=== PATIENT | female | born 1980 | race Caucasian/White ===

== ENCOUNTER → 2016-12-05 | Outpatient (CLI) | payer BC ==
--- NOTE | 2016-12-05 15:38 | CT ---
EXAMINATION TYPE: CT iac wo con DATE OF EXAM: 12/05/2016 COMPARISON: NONE HISTORY: Head injury 10/24/16. Bilateral hearing loss, worse on left side. CT DLP: 150.00mGycm Automated exposure control for dose reduction was used. FINDINGS: The external auditory canals are patent bilaterally. Mastoid air cells show no evidence of abnormal opacification bilaterally. The middle ear ossicles are symmetric and unremarkable. There is no evidence of suspicious surrounding soft tissue density to suggest cholesteatoma. The scutum is preserved bilaterally. The cochlea and the semicircular canals are symmetric and unremarkable. Ves tibular aqueduct and internal carotid canal appear unremarkable. Temporomandibular joints are mainta ined bilaterally. IMPRESSION: No significant abnormality seen to account for patient's symptoms.
== END | disposition home or self-care (01) ==
LOC: RADCTMAIN 14:53
PROVIDERS: ATTEND Nurse Practitioner Family
DX: H93.19 Tinnitus, unspecified ear (principal); H90.12 Conductive hearing loss, unilateral, left ear, with unrestricted hearing on the contralateral side; S09.90XS Unspecified injury of head, sequela
CPT/HCPCS: 70480

== ENCOUNTER → 2018-09-10 | Outpatient (CLI) | payer BC, OTHER ==
--- NOTE | 2018-09-11 10:32 | XR ---
Right shoulder HISTORY: Pain for 2 years 3 views of the right shoulder Bone mineralization, joint spaces and alignment are maintained. Right lung apex as visualized is norm al. IMPRESSION: Normal right shoulder.
== END | disposition home or self-care (01) ==
LOC: RADXRMAIN 17:07
PROVIDERS: ATTEND Family Medicine
DX: M75.41 Impingement syndrome of right shoulder (principal)

== ENCOUNTER → 2018-11-06 | Outpatient (CLI) | payer BC, OTHER ==
--- NOTE | 2018-11-06 17:00 | XR ---
Left foot HISTORY: M 79.672, pain 3 views of the left foot Suspect there is been prior osteotomy change at the first metatarsal, lucency is present in the first metatarsal head, there is marginal spurring, joint space loss at the first metatarsophalangeal joint . IMPRESSION: Suspect postop change first metatarsal, possible secondary osteoarthritic changes. Follow -up as indicated, MRI may be of benefit.
== END | disposition home or self-care (01) ==
LOC: RADXRMAIN 16:30
PROVIDERS: ATTEND Family Medicine
DX: M79.672 Pain in left foot (principal); Z98.890 Other specified postprocedural states

== ENCOUNTER → 2018-12-10 | Outpatient (CLI) | payer OTHER ==
--- NOTE | 2018-12-10 17:07 | XR ---
EXAMINATION TYPE: XR shoulder complete RT DATE OF EXAM: 12/10/2018 COMPARISON: 09/10/2018 HISTORY: Pain for one month TECHNIQUE: 3 views FINDINGS: I see no fracture nor dislocation. Joint spaces are normal. There are no pathologic calcifi cations. IMPRESSION: Negative right shoulder exam.
== END | disposition home or self-care (01) ==
LOC: RADXRMAIN 16:38
PROVIDERS: ATTEND Emergency Medicine
DX: S46.811A Strain of other muscles, fascia and tendons at shoulder and upper arm level, right arm, initial encounter (principal)

== ENCOUNTER 2019-06-05 17:03 | Emergency (ER) | payer BC, OTHER ==
[2019-06-05 17:08] VITALS: RESP 16; TEMP 97.8
[2019-06-05] MEDS ORDERED: ONDANSETRON 4 MG/2 ML VIAL IVP STA (17:27)
[2019-06-05] MEDS ORDERED: SODIUM CHLORIDE 0.9% 500 ML 500 ML IV STA (17:27)
[2019-06-05] MEDS ORDERED: SODIUM CHLORIDE 0.9% 1,000 ML IV SCH (17:30)
[2019-06-05 18:05] LABS: Appearance,Urine Cloudy (Clear); Bacteria,Urine Rare /hpf; Bilirubin,Urine Negative (Negative); Blood,Urine Moderate (Negative); Color,Urine Yellow; Glucose,Urine (UA) Negative (Negative); Ketones,Urine 2+ (Negative); Leukocyte Esterase,Urine Trace (Negative); Mucus,Urine Occasional /hpf; Nitrite,Urine Negative (Negative); Protein,Urine Negative (Negative); RBC,Urine 55 /hpf (0-5); Specific Gravity,Urine 1.022 (1.001-1.035); Squamous Epithelial Cell,Urine 4 /hpf (0-4); Urobilinogen,Urine <2.0 mg/dL (<2.0); WBC,Urine 2 /hpf (0-5)
[2019-06-05 18:09] LABS: ALT 15 U/L (4-34); AST 24 U/L (14-36); African American GFR (CKD) >90 (>60 ml/min/1.73 sqM); Albumin 4.5 g/dL (3.5-5.0); Alkaline Phosphatase 56 U/L (38-126); Amylase 32 U/L (30-110); Anion Gap 4 mmol/L; Blood Urea Nitrogen 15 mg/dL (7-17); Calcium 9.2 mg/dL (8.4-10.2); Carbon Dioxide 26 mmol/L (22-30); Chloride 106 mmol/L (98-107); Glucose 92 mg/dL (74-99); Non-African American GFR(CKD) >90 (>60 ml/min/1.73 sqM); Sodium 136 mmol/L (137-145); Total Bilirubin 0.5 mg/dL (0.2-1.3)
--- NOTE | 2019-06-05 18:27 | US ---
EXAMINATION TYPE: US abdomen limited DATE OF EXAM: 06/05/2019 COMPARISON: NONE CLINICAL HISTORY: RUQ Pain. EXAM MEASUREMENTS: Liver Length: 13.5 cm Gallbladder Wall: 0.4 cm CBD: 0.3 cm Right Kidney: 9.1 x 3.5 x 4.1 cm Pancreas: Partially obscured by bowel gas, portions visualized wnl Liver: wnl Gallbladder: slightly thickened wall, patient states she hasn't eaten for 7 hours Evidence for sonographic Grewal's sign: no CBD: wnl Right Kidney: No hydronephrosis or masses seen IMPRESSION: Negative exam. No gallstones or dilated ducts. No renal mass or obstruction.
[2019-06-05 18:35] LABS: HCT 39.3 % (34.0-46.0); HGB 13.3 gm/dL (11.4-16.0); MCH 29.8 pg (25.0-35.0); MCV 87.6 fL (80.0-100.0); Mean Platelet Volume 9.1; Platelet Count 167 k/uL (150-450); RBC 4.48 m/uL (3.80-5.40); RDW 12.8 % (11.5-15.5); WBC 6.3 k/uL (3.8-10.6)
[2019-06-05 19:01] LABS: Eosinophils # (M) 0.06 k/uL (0-0.7); Lymphocytes # (M) 2.96 k/uL (1.0-4.8); Monocytes # (M) 0.38 k/uL (0-1.0); Neutrophils % (M) 46 %; Nucleated Red Blood Cells 0 /100 WBC (0-0); Total Cells Counted 100
--- NOTE | 2019-06-05 19:44 | ED ---
Abdominal Pain HPI - General Chief Complaint: Abdominal Pain Stated Complaint: Abd pain Time Seen by Provider: 06/05/19 17:13 Source: patient Mode of arrival: ambulatory Limitations: no limitations - History of Present Illness Initial Comments: 38-year-old feel presents for 1 day of right upper quadrant abdominal pain. Patient states while at work she developed right upper quadrant dull pain she states she had some nausea. Denies vomiting denies diarrhea denies loose stools denies pattern with food. Denies fevers. Patient states she is currently menstruating denies any significant lower abdominal pain. Patient denies any flank or back pain. Patient denies dysuria urgency frequency patient denies any history of kidney stones. Patient states is dull aching and at times sharp. Patient states that increases in the RUQ of the abdomen when she takes a deep breath denies hemoptysis leg swelling she denies any history of DVT or pulmonary embolism denies any history of active cancer. Patient has no other complaints she denies shortness of breath. Upon arrival patient is afebrile. VS within acceptable limits.NO sign of acute distress. - Related Data Home Medications Medication Instructions Recorded Confirmed Bcp 02/15/15 02/15/15 Allergies Allergy/AdvReac Type Severity Reaction Status Date / Time No Known Allergies Allergy Verified 06/05/19 17:07 Review of Systems ROS Statement: Those systems with pertinent positive or pertinent negative responses have been documented in the HPI. ROS Other: All systems not noted in ROS Statement are negative. Past Medical History Past Medical History: No Reported History History of Any Multi-Drug Resistant Organisms: None Reported Past Surgical History: No Surgical Hx Reported Additional Past Surgical History / Comment(s): (L) foot Past Psychological History: No Psychological Hx Reported Smoking Status: Never smoker Past Alcohol Use History: None Reported Past Drug Use History: None Reported General Exam - General Exam Comments Initial Comments: General: The patient is awake and alert, in no distress, and does not appear acutely ill. Eye: +3 mm pupils are equal, round and reactive to light, extra-ocular movements are intact. No nystagmus. There is normal conjunctiva bilaterally. No signs of icterus. Ears, nose, mouth and throat: There are moist mucous membranes and no oral lesions. Neck: The neck is supple, there is no tenderness or JVD. Cardiovascular: There is a regular rate and rhythm. No murmur, rub or gallop is appreciated. Respiratory: Lungs are clear to auscultation, respirations are non-labored, breath sounds are equal. No wheezes, stridor, rales, or rhonchi. Gastrointestinal: Soft, non-distended, mild tenderness to deep palpation of the RUQ, (-) murphys sign, remaining abdomen nontender and without masses or organomegaly noted. There is no rebound or guarding present. No CVA tenderness. Musculoskeletal: Normal ROM, no tenderness. Strength 5/5. Sensation intact. Radial pulses equal bilaterally 2+. Neurological: A&O x 3. CN II-XII intact grossly, There are no obvious motor or sensory deficits. Coordination appears grossly intact. Speech is normal. Skin: Skin is warm and dry and no rashes or lesions are noted. Psychiatric: Cooperative, appropriate mood & affect, normal judgment. Limitations: no limitations Course Vital Signs 06/05/19 06/05/19 17:04 19:47 Temperature 97.8 F Pulse Rate 72 70 Respiratory 16 16 Rate Blood Pressure 118/73 109/72 O2 Sat by Pulse 97 99 Oximetry Medical Decision Making - Medical Decision Making 38-year-old feel presenting for upper quadrant pain ultrasound revealed a mildly thickened gallbladder however patient states she has not ate a meal in over 7 hours. There is no evidence of pericolic cystic fluid there is no evidence of acute cholecystitis at this time. No gallstones. Patient has no transaminitis she has no increase in lipase. She does not appear in acute distress she is afebrile with no leukocytosis. Patient's chest x-ray that was obtained outpatient is clear. Patient dimer (-). No risk factors concerning for DVT/PE. Patient pain is reproducible on abdominal exam. At this time feel she is stable for discharge with close primary care follow-up and strict return parameters for increasing or persistent pain patient verbalized understanding and was d ischarged appearing well. Discussed the case with attending provider Dr. Eaton who is agreeable to this care plan and discharge home. - Lab Data Result diagrams: 06/05/19 17:46 06/05/19 17:46 Lab Results 06/05/19 06/05/19 06/05/19 Range/Units 17:46 17:46 17:46 WBC 6.3 (3.8-10.6) k/uL RBC 4.48 (3.80-5.40) m/uL Hgb 13.3 (11.4-16.0) gm/dL Hct 39.3 (34.0-46.0) % MCV 87.6 (80.0-100.0) fL MCH 29.8 (25.0-35.0) pg MCHC 34.0 (31.0-37.0) g/dL RDW 12.8 (11.5-15.5) % Plt Count 167 (150-450) k/uL Neutrophils % (Manual) 46 % Lymphocytes % (Manual) 47 % Monocytes % (Manual) 6 % Eosinophils % (Manual) 1 % Neutrophils # (Manual) 2.90 (1.3-7.7) k/uL Lymphocytes # (Manual) 2.96 (1.0-4.8) k/uL Monocytes # (Manual) 0.38 (0-1.0) k/uL Eosinophils # (Manual) 0.06 (0-0.7) k/uL Nucleated RBCs 0 (0-0) /100 WBC Manual Slide Review Performed RBC Morphology Normal D-Dimer (<0.60) mg/L FEU Sodium 136 L (137-145) mmol/L Potassium 4.0 (3.5-5.1) mmol/L Chloride 106 (98-107) mmol/L Carbon Dioxide 26 (22-30) mmol/L Anion Gap 4 mmol/L BUN 15 (7-17) mg/dL Creatinine 0.78 (0.52-1.04) mg/dL Est GFR (CKD-EPI)AfAm >90 (>60 ml/min/1.73 sqM) Est GFR (CKD-EPI)NonAf >90 (>60 ml/min/1.73 sqM) Glucose 92 (74-99) mg/dL Calcium 9.2 (8.4-10.2) mg/dL Total Bilirubin 0.5 (0.2-1.3) mg/dL AST 24 (14-36) U/L ALT 15 (4-34) U/L Alkaline Phosphatase 56 (38-126) U/L Total Protein 7.0 (6.3-8.2) g/dL Albumin 4.5 (3.5-5.0) g/dL Amylase 32 (30-110) U/L Lipase 85 (23-300) U/L Urine Color Yellow Urine Appearance Cloudy H (Clear) Urine pH 6.0 (5.0-8.0) Ur Specific Loris 1.022 (1.001-1.035) Urine Protein Negative (Negative) Urine Glucose (UA) Negative (Negative) Urine Ketones 2+ H (Negative) Urine Blood Moderate H (Negative) Urine Nitrite Negative (Negative) Urine Bilirubin Negative (Negative) Urine Urobilinogen <2.0 (<2.0) mg/dL Ur Leukocyte Esterase Trace H (Negative) Urine RBC 55 H (0-5) /hpf Urine WBC 2 (0-5) /hpf Ur Squamous Epith Cells 4 (0-4) /hpf Urine Bacteria Rare H (None) /hpf Urine Mucus Occasional H (None) /hpf Urine HCG, Qual (Not Detectd) 06/05/19 06/05/19 Range/Units 17:46 17:46 WBC (3.8-10.6) k/uL RBC (3.80-5.40) m/uL Hgb (11.4-16.0) gm/dL Hct (34.0-46.0) % MCV (80.0-100.0) fL MCH (25.0-35.0) pg MCHC (31.0-37.0) g/dL RDW (11.5-15.5) % Plt Count (150-450) k/uL Neutrophils % (Manual) % Lymphocytes % (Manual) % Monocytes % (Manual) % Eosinophils % (Manual) % Neutrophils # (Manual) (1.3-7.7) k/uL Lymphocytes # (Manual) (1.0-4.8) k/uL Monocytes # (Manual) (0-1.0) k/uL Eosinophils # (Manual) (0-0.7) k/uL Nucleated RBCs (0-0) /100 WBC Manual Slide Review RBC Morphology D-Dimer <0.17 (<0.60) mg/L FEU Sodium (137-145) mmol/L Potassium (3.5-5.1) mmol/L Chloride (98-107) mmol/L Carbon Dioxide (22-30) mmol/L Anion Gap mmol/L BUN (7-17) mg/dL Creatinine (0.52-1.04) mg/dL Est GFR (CKD-EPI)AfAm (>60 ml/min/1.73 sqM) Est GFR (CKD-EPI)NonAf (>60 ml/min/1.73 sqM) Glucose (74-99) mg/dL Calcium (8.4-10.2) mg/dL Total Bilirubin (0.2-1.3) mg/dL AST (14-36) U/L ALT (4-34) U/L Alkaline Phosphatase (38-126) U/L Total Protein (6.3-8.2) g/dL Albumin (3.5-5.0) g/dL Amylase (30-110) U/L Lipase (23-300) U/L Urine Color Urine Appearance (Clear) Urine pH (5.0-8.0) Ur Specific Loris (1.001-1.035) Urine Protein (Negative) Urine Glucose (UA) (Negative) Urine Ketones (Negative) Urine Blood (Negative) Urine Nitrite (Negative) Urine Bilirubin (Negative) Urine Urobilinogen (<2.0) mg/dL Ur Leukocyte Esterase (Negative) Urine RBC (0-5) /hpf Urine WBC (0-5) /hpf Ur Squamous Epith Cells (0-4) /hpf Urine Bacteria (None) /hpf Urine Mucus (None) /hpf Urine HCG, Qual Not Detected (Not Detectd) Disposition Clinical Impression: RUQ abdominal pain Disposition: HOME SELF-CARE Condition: Good Instructions (If sedation given, give patient instructions): Abdominal Pain (ED) Additional Instructions: Please use medication as discussed. Please follow-up with family doctor in the next 2 days for hematuria . Please return to emergency room if the symptoms increase or worsen or for any other concerns. Is patient prescribed a controlled substance at d/c from ED?: No Referrals: Jennifer Padilla MD [Primary Care Provider] - 1-2 days Time of Disposition: 19:43
[2019-06-05 19:48] VITALS: BP 109/72; PULSE 70
== END 2019-06-05 19:56 | disposition home or self-care (01) ==
LOC: EC 17:03
DX: R10.11 Right upper quadrant pain (principal); R11.0 Nausea
CPT/HCPCS: 36415; 85379; 80053; 82150; 83690; 85025; 81001; 81025; 76705; 99284; 96374; 96361 ×2; J2405

== ENCOUNTER → 2019-06-05 | Outpatient (CLI) | payer BC, OTHER ==
--- NOTE | 2019-06-05 19:04 | XR ---
EXAMINATION TYPE: XR chest 2V DATE OF EXAM: 06/05/2019 COMPARISON: NONE HISTORY: Left side lung nodule. Short of breath. TECHNIQUE: 2 views FINDINGS: Heart and mediastinum are normal. Lungs are clear. Diaphragm is normal. Bony thorax appears normal. IMPRESSION: Normal chest.
== END | disposition home or self-care (01) ==
LOC: RAD 16:42
PROVIDERS: ATTEND Family Medicine
DX: R91.1 Solitary pulmonary nodule (principal)
CPT/HCPCS: 71046

== ENCOUNTER → 2023-03-29 | Outpatient (CLI) | payer OTHER ==
--- NOTE | 2023-03-29 16:17 | US ---
EXAMINATION TYPE: US kidneys/renal and bladder DATE OF EXAM: 03/29/2023 COMPARISON: NONE CLINICAL INDICATION: Female, 42 years old with history of R10.9 UNSPECIFIED ABDOMINAL PAIN; Right fla nk pain, abdominal swelling/bloating EXAM MEASUREMENTS: Right Kidney: 8.5 x 3.6 x 4.9 cm Left Kidney: 9.1 x 4.2 x 4.6 cm Multiple punctate echogenic areas on both sides, probably prominent vascular reflectors. No hydronephrosis is seen on either side. Bladder: No gross abnormality. Bilateral Jets seen: Yes IMPRESSION: Punctate echogenic areas in both sides, probably prominent vascular reflectors. Some underlying tiny nonobstructive renal calculi are difficult to exclude. No hydronephrosis.
== END | disposition home or self-care (01) ==
LOC: RADUSWWP 15:36
PROVIDERS: ATTEND Family Medicine
DX: R10.9 Unspecified abdominal pain (principal); R14.0 Abdominal distension (gaseous)
CPT/HCPCS: 76770

== ENCOUNTER → 2024-02-07 | Outpatient (CLI) | payer OTHER ==
--- NOTE | 2024-02-07 10:53 | US ---
EXAMINATION TYPE: US abdomen complete DATE OF EXAM: 02/07/2024 COMPARISON: 03/29/2023 06/05/2019 CLINICAL INDICATION: Female, 43 years old with history of R10.32 LEFT LOWER QUADRANT PAIN; Abdominal pain x 2 years; Left sided pain when doctor palpated abdomen; Irregular bowel movements since cholecy stectomy with an increase in belching TECHNIQUE: Grayscale and color Doppler imaging of the abdomen was performed. FINDINGS: EXAM MEASUREMENTS: Liver Length: 10.9 cm Gallbladder Wall: Surgically absent cm CBD: 0.2 cm, color Doppler imaging was utilized to isolate the common bile duct for measurement. 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 [facility], , 02/07/2024 10:51 AM
--- NOTE | 2024-02-07 10:56 | US ---
EXAMINATION TYPE: US pelvic complete DATE OF EXAM: 02/07/2024 COMPARISON: NONE CLINICAL INDICATION: Female, 43 years old with history of LLQ pain; Patient states abnormal menses si nce onset; IUD placed one year ago TECHNIQUE: Transabdominal (TA). Transabdominal grayscale sonographic images of the pelvis were acquired. Doppler imaging: Not performed. FINDINGS: Date of LMP: Unknown EXAM MEASUREMENTS: Uterus: 6.9 x 4.3 x 5.0 cm Endometrial Stripe: 0.5 cm Right Ovary: 3.4 x 2.8 x 1.6 cm Left Ovary: 3.1 x 1.9 x 1.9 cm 1. Uterus: Anteverted wnl 2. Endometrium: wnl; IUD seen appropriately within 3. Right Ovary: wnl 4. Left Ovary: wnl 5. Bilateral Adnexa: wnl 6. Posterior cul-de-sac: wnl IMPRESSION: No acute process. [facility], , 02/07/2024 10:53 AM
[2024-02-07 15:12] LABS: Basophils # (A) 0.04 X 10*3/uL (0.00-0.10); Basophils % (A) 0.6 %; Eosinophils # (A) 0.05 X 10*3/uL (0.04-0.35); Eosinophils % (A) 0.7 %; HCT 47.2 % (37.2-46.3); Lymphocytes # (A) 1.78 X 10*3/uL (0.90-5.00); Lymphocytes % (A) 26.1 %; MCH 29.7 pg (27.0-32.0); MCHC 33.9 g/dL (32.0-37.0); MCV 87.6 FL (80.0-97.0); Mean Platelet Volume 11.7 FL (9.5-12.2); Monocytes # (A) 0.55 X 10*3/uL (0.20-1.00); Monocytes % (A) 8.1 %; NRBC Per 100 WBC 0 X 10*3/uL (0.00-0.01); Neutrophils # (A) 4.37 X 10*3/uL (1.80-7.70); Neutrophils % (A) 63.9 %; Platelet Count 117 X 10*3/uL (140-440); RBC 5.39 X 10*6/uL (4.10-5.20); WBC 6.83 X 10*3/uL (4.50-10.00)
[2024-02-07 15:42] LABS: ALT 10 U/L (8-44); AST 16 U/L (13-35); Albumin 4.5 g/dL (3.8-4.9); Albumin/Globulin Ratio 1.96 Ratio (1.60-3.17); Alkaline Phosphatase 59 U/L (41-126); BUN/Creat Ratio 12.44 Ratio (12.00-20.00); Blood Urea Nitrogen 11.2 mg/dL (9.0-27.0); Calcium 9.6 mg/dL (8.7-10.3); Carbon Dioxide 24.3 mmol/L (21.6-31.8); Chloride 105 mmol/L (96-109); Globulin 2.3 g/dL (1.6-3.3); Glucose 92 mg/dL (70-110); Potassium 4.7 mmol/L (3.5-5.5); Sodium 139 mmol/L (135-145); T4, Free (Free Thyroxine) 1.22 ng/dL (0.80-1.80); Total Bilirubin 0.7 mg/dL (0.3-1.2); Total Protein 6.8 g/dL (6.2-8.2)
== END | disposition home or self-care (01) ==
LOC: RADUSWWP 09:59
PROVIDERS: ATTEND Family Medicine
DX: R10.32 Left lower quadrant pain (principal)
CPT/HCPCS: 36415; 76700; 76856; 80053; 84439; 84443; 85025

== ENCOUNTER → 2024-06-09 | Outpatient (CLI) | payer OTHER ==
--- NOTE | 2024-06-10 06:25 | US ---
EXAMINATION TYPE: US thyroid st tissue head/neck DATE OF EXAM: 06/09/2024 COMPARISON: NONE CLINICAL INDICATION: Female, 43 years old with history of R59.0 LARGE LYMPH NODES; palpable nodes for years, recent infections TECHNIQUE: Left soft tissue neck FINDINGS: 1.3 x 1.1 x 0.8cm normal appearing node, chain of smaller nodes adjacent Slightly prominent but benign-appearing subcentimeter in short axis lymph node seen in the left neck at the area of clinical concern. IMPRESSION: As above. Findings presumed benign. Advise repeat imaging if area is felt to enlarge and /or become painful. [facility], , 06/10/2024 6:22 AM
== END | disposition home or self-care (01) ==
LOC: RADUSWWP 16:04
PROVIDERS: ATTEND Emergency Medicine
DX: R59.0 Localized enlarged lymph nodes (principal)
CPT/HCPCS: 76536

== ENCOUNTER → 2024-06-25 | Outpatient (CLI) | payer OTHER ==
--- NOTE | 2024-06-25 15:03 | CT ---
EXAMINATION TYPE: CT chest wo con DATE OF EXAM: 06/25/2024 COMPARISON: NONE CLINICAL INDICATION: Female, 43 years old with history of R06.00 DYSPNEA, Lung nodule TECHNIQUE: CT scan of the thorax is performed without IV contrast. CT DLP: 349 mGycm. Automated Exposure Control for Dose Reduction was Utilized. FINDINGS: LUNGS: The lungs are grossly clear, there is no concerning parenchymal mass or focal consolidation id entified. There is no pleural effusion or pneumothorax seen. The tracheobronchial tree is patent. HEART: Size within normal limits. No significant coronary artery calcifications. MEDIASTINUM: Lack of IV contrast is noted to limit evaluation for mediastinal and especially hilar ad enopathy. There are no definitive greater than 1 cm mediastinal lymph nodes. No pericardial effusio n is seen. OTHER: Cholecystectomy clips are present. Slight scoliotic curvature. IMPRESSION: No suspicious acute or chronic pulmonary process. [facility], , 06/25/2024 3:01 PM
== END | disposition home or self-care (01) ==
LOC: RADCTMAIN 10:03
PROVIDERS: ATTEND Family Medicine
DX: R06.00 Dyspnea, unspecified (principal); R91.1 Solitary pulmonary nodule
CPT/HCPCS: 71250

== ENCOUNTER → 2024-07-10 | Outpatient (CLI) | payer OTHER ==
--- NOTE | 2024-07-13 16:13 | MM ---
Reason for Exam: Screening (asymptomatic). Last mammogram was performed 2 year(s) and 9 month(s) ago. Patient History: Menarche at age 12. First Full-Term at age 21. Patient has history of breast feeding. Ovarian cancer, age 26. Currently using Hormonal Contraceptives, for 15 years. Maternal grandmother had breast cancer under age 50. Paternal grandmother had breast cancer. Last menstrual period: 07/10/2024 Risk Values: Rubia 5 year model risk: 0.6%. NCI Lifetime model risk: 8.8%. Prior Study Comparison: 10/04/2021 Bilateral Diagnostic Mammogram, [facility]. Tissue Density: The breasts are heterogeneously dense, which may obscure small masses. Findings: Analyzed By CAD. There is a 9 to 10 mm focal asymmetry in the upper aspect middle depth left breast that warrants further workup. There is no suspicious group of microcalcifications in either breast. Overall Assessment: Incomplete: need additional imaging evaluation, BI-RAD 0 Management: Special View Mammogram of the left breast. Return for additional views including spot 3-D and 3-D true lateral views if possible. Patient should continue monthly self-breast exams. A clinical breast exam by your physician is recommended on an annual basis. This exam should not preclude additional follow-up of suspicious palpable abnormalities. Note on Rubia scores and lifetime risk: 1. A Rubia score greater than 3% is considered moderate risk. If this is the case, consider specialist referral to assess eligibility for a risk reducing agent. 2. If overall lifetime risk for the development of breast cancer is 20% or higher, the patient may qualify for future screening with alternating mammogram and breast MRI. [facility], , 07/13/2024 4:10 PM. Electronically signed and approved by: Shai Young M.D.
== END | disposition home or self-care (01) ==
LOC: RADMAMWWP 14:17
PROVIDERS: ATTEND Family Medicine
DX: Z12.31 Encounter for screening mammogram for malignant neoplasm of breast (principal); R92.333 Mammographic heterogeneous density, bilateral breasts; Z80.3 Family history of malignant neoplasm of breast; Z79.3 Long term (current) use of hormonal contraceptives
CPT/HCPCS: 77067

== ENCOUNTER → 2024-07-15 | Outpatient (CLI) | payer OTHER ==
--- NOTE | 2024-07-15 09:02 | MM ---
Reason for Exam: Additional evaluation requested from abnormal screening. Last screening mammogram was performed less than 1 month ago. Patient History: Menarche at age 12. First Full-Term at age 21. Patient has history of breast feeding. Ovarian cancer, age 26. Currently using Hormonal Contraceptives, for 15 years. Maternal grandmother had breast cancer under age 50. Paternal grandmother had breast cancer. Risk Values: Rubia 5 year model risk: 0.6%. NCI Lifetime model risk: 8.8%. Prior Study Comparison: 10/04/2021 Bilateral Diagnostic Mammogram, [facility]. 07/10/2024 Bilateral MG screening mammo w CAD, [facility]. Tissue Density: Left: The breasts are heterogeneously dense, which may obscure small masses. Findings: Analyzed By CAD. No distinct persistent mass however precautionary six-month follow-up of the left breast is advised. Overall Assessment: Probably benign, BI-RAD 3 Management: Diagnostic Mammogram of the left breast in 6 months. . Results were given to the patient verbally at the time of exam. Patient should continue monthly self-breast exams. A clinical breast exam by your physician is recommended on an annual basis. This exam should not preclude additional follow-up of suspicious palpable abnormalities. Note on Rubia scores and lifetime risk: 1. A Rubia score greater than 3% is considered moderate risk. If this is the case, consider specialist referral to assess eligibility for a risk reducing agent. 2. If overall lifetime risk for the development of breast cancer is 20% or higher, the patient may qualify for future screening with alternating mammogram and breast MRI. [facility], , 07/15/2024 8:56 AM. Electronically signed and approved by: Bipin Cramer M.D. Radiologis
== END | disposition home or self-care (01) ==
LOC: RADMAMWWP 08:28
PROVIDERS: ATTEND Family Medicine
DX: R92.8 Other abnormal and inconclusive findings on diagnostic imaging of breast (principal); R92.332 Mammographic heterogeneous density, left breast; Z80.3 Family history of malignant neoplasm of breast; Z92.0 Personal history of contraception
CPT/HCPCS: 77065; G0279; 77061

== ENCOUNTER → 2024-08-03 | Outpatient (CLI) | payer OTHER ==
--- NOTE | 2024-08-04 11:53 | US ---
EXAMINATION TYPE: US venous doppler duplex LE RT DATE OF EXAM: 08/03/2024 4:44 PM COMPARISON: NONE CLINICAL INDICATION: Female, 43 years old with history of I80.01 PHLEBITIS THOMBOPHLEBITIS; recent ve in ablations for venous insufficiency, Pain TECHNIQUE: The lower extremity deep venous system is examined utilizing real time linear array sonog yesenia with graded compression, color doppler sonography, and spectral doppler. SIDE PERFORMED: Right FINDINGS: VESSELS IMAGED: Common Femoral Vein Deep Femoral Vein Greater Saphenous Vein * Femoral Vein Popliteal Vein Small Saphenous Vein * Proximal Calf Veins (* superficial vessels) Right Leg: Negative for DVT, Color Doppler imaging shows patency of the vessels. Spectral waveforms are within normal limits. Patient's area of pain corresponds to ablated GSV. Area of discoloration corresponds to where the abl ated vein courses superficial just beneath the skin surface. The vein here shows noncompressibility a nd predominantly anechoic appearance in keeping with recent ablation. A very short segment shows some internal echogenicity suggesting early clot maturation. IMPRESSION: 1. No evidence for DVT within the right lower extremity imaged from the groin to the upper calf. 2. Targeted scanning at the patient's area of concern corresponds to the site of successfully ablated GSV. [facility], , 08/04/2024 11:51 AM
== END | disposition home or self-care (01) ==
LOC: RADUSWWP 16:13
PROVIDERS: ATTEND Emergency Medicine
DX: I80.01 Phlebitis and thrombophlebitis of superficial vessels of right lower extremity (principal)